=== PATIENT | male | born 1960 | race Asian ===

== ENCOUNTER → 2017-04-02 | Outpatient (CLI) | payer OTHER ==
[~2017-04-02] VITALS: Ht 180.3 cm; Wt 84.3 kg
[~2017-04-02] MED LIST: ACET-66 PO; ASA3 PO; ASCO500 PO; ASPI-1093 PO; BUPR75 PO; CALC500T62 PO; CEPH500 PO; D-ME118S13 PO; DOXY100C40 PO; MULT-71 PO; RISP0.5T19 PO; TESTC200I IM; TRIA15CR48 TP; TRIA15OI6 TP
[2017-04-02 14:04] VITALS: BP 115/70
== END | disposition home or self-care (01) ==
LOC: HBOWC 13:39
PROVIDERS: ATTEND Emergency Medicine
DX: I87.2 Venous insufficiency (chronic) (peripheral) (principal); L97.311 Non-pressure chronic ulcer of right ankle limited to breakdown of skin; L97.511 Non-pressure chronic ulcer of other part of right foot limited to breakdown of skin; I83.12 Varicose veins of left lower extremity with inflammation; M86.8X8 Other osteomyelitis, other site; Z86.718 Personal history of other venous thrombosis and embolism; Z79.82 Long term (current) use of aspirin; Z86.14 Personal history of Methicillin resistant Staphylococcus aureus infection; Z79.4 Long term (current) use of insulin
CPT/HCPCS: 97597

== ENCOUNTER → 2017-04-11 | Outpatient (CLI) | payer OTHER ==
[~2017-04-11] MED LIST changes: -ASPI-1093 PO; -D-ME118S13 PO; -TRIA15CR48 TP
[2017-04-11 08:22] VITALS: BP 112/61
== END | disposition home or self-care (01) ==
LOC: HBOWC 08:03
PROVIDERS: ATTEND Emergency Medicine
DX: I87.2 Venous insufficiency (chronic) (peripheral) (principal); L97.321 Non-pressure chronic ulcer of left ankle limited to breakdown of skin; D68.62 Lupus anticoagulant syndrome; M79.3 Panniculitis, unspecified; Q98.4 Klinefelter syndrome, unspecified; M21.6X2 Other acquired deformities of left foot; M21.6X1 Other acquired deformities of right foot; D66 Hereditary factor VIII deficiency; M86.8X8 Other osteomyelitis, other site; Z79.82 Long term (current) use of aspirin; Z79.4 Long term (current) use of insulin; Z86.14 Personal history of Methicillin resistant Staphylococcus aureus infection; Z86.718 Personal history of other venous thrombosis and embolism
CPT/HCPCS: 97597

== ENCOUNTER → 2017-04-18 | Outpatient (CLI) | payer OTHER ==
[~2017-04-18] MED LIST changes: +ACETIC ACID 0.25% 1000 ML IRRIGATION SOLUTION IRRIG ONE; +LIDOCAINE HCL 2% 5 ML JELLY TP ONE; +LIDOCAINE HCL 4% 50 ML SOLUTION TP ONE; +TRIAMCINOLONE 0.1% 15 GM CREAM TP ONE; +TRIAMCINOLONE 0.1% 15 GM OINTMENT TP ONE
[2017-04-18 08:15] VITALS: BP 109/54
== END | disposition home or self-care (01) ==
LOC: HBOWC 07:52
PROVIDERS: ATTEND Emergency Medicine
DX: I87.2 Venous insufficiency (chronic) (peripheral) (principal); L97.322 Non-pressure chronic ulcer of left ankle with fat layer exposed; L97.311 Non-pressure chronic ulcer of right ankle limited to breakdown of skin; M86.8X8 Other osteomyelitis, other site; Z86.14 Personal history of Methicillin resistant Staphylococcus aureus infection; Z79.4 Long term (current) use of insulin; Z86.718 Personal history of other venous thrombosis and embolism
CPT/HCPCS: 97597

== ENCOUNTER → 2017-04-25 | Outpatient (CLI) | payer OTHER ==
[~2017-04-25] MED LIST changes: -ACETIC ACID 0.25% 1000 ML IRRIGATION SOLUTION IRRIG ONE; -CEPH500 PO; -LIDOCAINE HCL 2% 5 ML JELLY TP ONE; -LIDOCAINE HCL 4% 50 ML SOLUTION TP ONE; -TRIAMCINOLONE 0.1% 15 GM CREAM TP ONE; -TRIAMCINOLONE 0.1% 15 GM OINTMENT TP ONE
[2017-04-25 08:24] VITALS: BP 109/72
== END | disposition home or self-care (01) ==
LOC: HBOWC 07:49
PROVIDERS: ATTEND Emergency Medicine
DX: I87.2 Venous insufficiency (chronic) (peripheral) (principal); L97.322 Non-pressure chronic ulcer of left ankle with fat layer exposed; L97.311 Non-pressure chronic ulcer of right ankle limited to breakdown of skin; M86.8X8 Other osteomyelitis, other site; Q89.9 Congenital malformation, unspecified; Z79.4 Long term (current) use of insulin; Z86.14 Personal history of Methicillin resistant Staphylococcus aureus infection; Z86.718 Personal history of other venous thrombosis and embolism
CPT/HCPCS: 97597

== ENCOUNTER → 2017-05-02 | Outpatient (CLI) | payer OTHER ==
[~2017-05-02] MED LIST changes: +TRIAMCINOLONE 0.1% 15 GM CREAM TP ONE
[2017-05-02 08:24] VITALS: BP 105/57
== END | disposition home or self-care (01) ==
LOC: HBOWC 07:47
PROVIDERS: ATTEND Emergency Medicine
DX: I87.2 Venous insufficiency (chronic) (peripheral) (principal); L97.321 Non-pressure chronic ulcer of left ankle limited to breakdown of skin; M86.8X8 Other osteomyelitis, other site; Z86.14 Personal history of Methicillin resistant Staphylococcus aureus infection; Z86.718 Personal history of other venous thrombosis and embolism; M21.6X2 Other acquired deformities of left foot; M21.6X1 Other acquired deformities of right foot; Z79.4 Long term (current) use of insulin
CPT/HCPCS: 97597; C5271; Q4102

== ENCOUNTER → 2017-05-09 | Outpatient (CLI) | payer OTHER ==
[~2017-05-09] MED LIST changes: -TRIAMCINOLONE 0.1% 15 GM CREAM TP ONE
[2017-05-09 09:30] VITALS: BP 104/50
== END | disposition home or self-care (01) ==
LOC: HBOWC 07:59
PROVIDERS: ATTEND Emergency Medicine
DX: I87.2 Venous insufficiency (chronic) (peripheral) (principal); L97.322 Non-pressure chronic ulcer of left ankle with fat layer exposed; L97.311 Non-pressure chronic ulcer of right ankle limited to breakdown of skin; Z79.4 Long term (current) use of insulin; Z86.14 Personal history of Methicillin resistant Staphylococcus aureus infection; Z86.718 Personal history of other venous thrombosis and embolism
CPT/HCPCS: 97597

== ENCOUNTER → 2017-05-16 | Outpatient (CLI) | payer OTHER ==
[~2017-05-16] MED LIST changes: -DOXY100C40 PO; +LIDOCAINE HCL 2% 5 ML JELLY TP ONE; +TRIAMCINOLONE 0.1% 15 GM OINTMENT TP ONE
[2017-05-16 08:43] VITALS: BP 112/72
== END | disposition home or self-care (01) ==
LOC: HBOWC 08:07
PROVIDERS: ATTEND Emergency Medicine Undersea and Hyperbaric Medicine
DX: I87.2 Venous insufficiency (chronic) (peripheral) (principal); L97.322 Non-pressure chronic ulcer of left ankle with fat layer exposed; M86.8X8 Other osteomyelitis, other site; Q98.4 Klinefelter syndrome, unspecified; Z86.14 Personal history of Methicillin resistant Staphylococcus aureus infection; Z86.718 Personal history of other venous thrombosis and embolism; M20.092 Other deformity of left finger(s); M20.091 Other deformity of right finger(s); M20.42 Other hammer toe(s) (acquired), left foot; M20.41 Other hammer toe(s) (acquired), right foot; Z79.4 Long term (current) use of insulin
CPT/HCPCS: 97597

== ENCOUNTER → 2017-05-19 | Outpatient (CLI) | payer OTHER ==
[~2017-05-19] MED LIST changes: -LIDOCAINE HCL 2% 5 ML JELLY TP ONE; -TRIAMCINOLONE 0.1% 15 GM OINTMENT TP ONE
[2017-05-19 08:00] VITALS: BP_SYST 130; BP_SYST 146; BP_DIAS 62; BP_DIAS 66
== END | disposition home or self-care (01) ==
LOC: HBOWC 08:01
PROVIDERS: ATTEND Emergency Medicine
DX: I87.2 Venous insufficiency (chronic) (peripheral) (principal); L97.322 Non-pressure chronic ulcer of left ankle with fat layer exposed; M20.092 Other deformity of left finger(s); M20.091 Other deformity of right finger(s); M20.42 Other hammer toe(s) (acquired), left foot; M20.41 Other hammer toe(s) (acquired), right foot; M86.8X8 Other osteomyelitis, other site; Z79.4 Long term (current) use of insulin; Z86.14 Personal history of Methicillin resistant Staphylococcus aureus infection; Z86.718 Personal history of other venous thrombosis and embolism
CPT/HCPCS: 97597

== ENCOUNTER → 2017-05-26 | Outpatient (CLI) | payer OTHER ==
[2017-05-26 08:00] VITALS: BP 95/64
== END | disposition home or self-care (01) ==
LOC: HBOWC 08:15
PROVIDERS: ATTEND Emergency Medicine
DX: I87.2 Venous insufficiency (chronic) (peripheral) (principal); L97.322 Non-pressure chronic ulcer of left ankle with fat layer exposed; M20.092 Other deformity of left finger(s); M20.091 Other deformity of right finger(s); M86.8X8 Other osteomyelitis, other site; M21.6X1 Other acquired deformities of right foot; M21.6X2 Other acquired deformities of left foot; Z79.4 Long term (current) use of insulin; Z86.14 Personal history of Methicillin resistant Staphylococcus aureus infection; Z86.718 Personal history of other venous thrombosis and embolism
CPT/HCPCS: 97597

== ENCOUNTER → 2017-06-02 | Outpatient (CLI) | payer OTHER ==
[~2017-06-02] MED LIST changes: +LIDOCAINE HCL 2% 5 ML JELLY TP ONE; +TRIAMCINOLONE 0.1% 15 GM OINTMENT TP ONE
[2017-06-02 08:22] VITALS: BP 97/57
[2017-06-02 10:33] VITALS: BP 113/60
== END | disposition home or self-care (01) ==
LOC: HBOWC 08:08
PROVIDERS: ATTEND Emergency Medicine
DX: I87.2 Venous insufficiency (chronic) (peripheral) (principal); L97.321 Non-pressure chronic ulcer of left ankle limited to breakdown of skin; M21.6X2 Other acquired deformities of left foot; M21.6X1 Other acquired deformities of right foot; M20.092 Other deformity of left finger(s); M20.091 Other deformity of right finger(s); M86.8X8 Other osteomyelitis, other site; Z86.14 Personal history of Methicillin resistant Staphylococcus aureus infection; Z86.718 Personal history of other venous thrombosis and embolism; M20.41 Other hammer toe(s) (acquired), right foot; D66 Hereditary factor VIII deficiency; M20.42 Other hammer toe(s) (acquired), left foot; Z79.82 Long term (current) use of aspirin
CPT/HCPCS: 97597

== ENCOUNTER → 2017-06-09 | Outpatient (CLI) | payer OTHER ==
[~2017-06-09] MED LIST changes: +DOXY100C PO; -LIDOCAINE HCL 2% 5 ML JELLY TP ONE; -TRIAMCINOLONE 0.1% 15 GM OINTMENT TP ONE
[2017-06-09 08:29] VITALS: BP 90/45
[2017-06-09 09:25] VITALS: BP 100/53
== END | disposition home or self-care (01) ==
LOC: HBOWC 08:09
PROVIDERS: ATTEND Emergency Medicine Undersea and Hyperbaric Medicine
DX: I87.2 Venous insufficiency (chronic) (peripheral) (principal); L97.321 Non-pressure chronic ulcer of left ankle limited to breakdown of skin; L97.311 Non-pressure chronic ulcer of right ankle limited to breakdown of skin; Z79.82 Long term (current) use of aspirin; M21.6X2 Other acquired deformities of left foot; M21.6X1 Other acquired deformities of right foot; M20.092 Other deformity of left finger(s); M20.091 Other deformity of right finger(s); M20.42 Other hammer toe(s) (acquired), left foot; M20.41 Other hammer toe(s) (acquired), right foot; Q98.4 Klinefelter syndrome, unspecified; M86.8X8 Other osteomyelitis, other site; Z86.14 Personal history of Methicillin resistant Staphylococcus aureus infection; Z86.718 Personal history of other venous thrombosis and embolism
CPT/HCPCS: 97597

== ENCOUNTER → 2017-06-17 | Outpatient (CLI) | payer OTHER ==
[2017-06-17 08:44] VITALS: BP 111/56
== END | disposition home or self-care (01) ==
LOC: HBOWC 08:07
PROVIDERS: ATTEND Emergency Medicine
DX: I87.2 Venous insufficiency (chronic) (peripheral) (principal); L97.322 Non-pressure chronic ulcer of left ankle with fat layer exposed; M86.8X8 Other osteomyelitis, other site; Z86.14 Personal history of Methicillin resistant Staphylococcus aureus infection; Z86.718 Personal history of other venous thrombosis and embolism; Z79.4 Long term (current) use of insulin
CPT/HCPCS: 97597; C5271; Q4124

== ENCOUNTER → 2017-06-24 | Outpatient (CLI) | payer OTHER ==
[~2017-06-24] MED LIST changes: -DOXY100C PO; -MULT-71 PO; +MULT1TAB70 PO; -TRIA15OI6 TP; +TRIAMCINOLONE 0.1% 15 GM OINTMENT TP ONE
[2017-06-24 08:42] VITALS: BP 108/61
== END | disposition home or self-care (01) ==
LOC: HBOWC 08:20
PROVIDERS: ATTEND Emergency Medicine
DX: I87.2 Venous insufficiency (chronic) (peripheral) (principal); L97.322 Non-pressure chronic ulcer of left ankle with fat layer exposed; M86.8X8 Other osteomyelitis, other site; M21.6X2 Other acquired deformities of left foot; M21.6X1 Other acquired deformities of right foot; M20.092 Other deformity of left finger(s); M20.091 Other deformity of right finger(s); Z79.4 Long term (current) use of insulin; Z86.14 Personal history of Methicillin resistant Staphylococcus aureus infection; Z86.718 Personal history of other venous thrombosis and embolism
CPT/HCPCS: C5271; Q4124

== ENCOUNTER → 2017-07-01 | Outpatient (CLI) | payer OTHER ==
[~2017-07-01] MED LIST changes: -TRIAMCINOLONE 0.1% 15 GM OINTMENT TP ONE
[2017-07-01 08:35] VITALS: BP 90/51
== END | disposition home or self-care (01) ==
LOC: HBOWC 08:24
PROVIDERS: ATTEND Emergency Medicine
DX: I87.2 Venous insufficiency (chronic) (peripheral) (principal); L97.321 Non-pressure chronic ulcer of left ankle limited to breakdown of skin; M21.6X2 Other acquired deformities of left foot; M21.6X1 Other acquired deformities of right foot; M86.8X8 Other osteomyelitis, other site; Z86.14 Personal history of Methicillin resistant Staphylococcus aureus infection; Z86.718 Personal history of other venous thrombosis and embolism; Q98.4 Klinefelter syndrome, unspecified; Z79.82 Long term (current) use of aspirin; M20.42 Other hammer toe(s) (acquired), left foot; M20.41 Other hammer toe(s) (acquired), right foot

== ENCOUNTER → 2017-07-08 | Outpatient (CLI) | payer OTHER ==
[~2017-07-08] MED LIST changes: +ALEN70TA48 PO; +LIDOCAINE HCL 2% 5 ML JELLY TP ONE
[2017-07-08 08:36] VITALS: BP 103/49
== END | disposition home or self-care (01) ==
LOC: HBOWC 08:13
PROVIDERS: ATTEND Emergency Medicine
DX: I87.2 Venous insufficiency (chronic) (peripheral) (principal); L97.321 Non-pressure chronic ulcer of left ankle limited to breakdown of skin; M86.8X8 Other osteomyelitis, other site; Q98.4 Klinefelter syndrome, unspecified; D68.62 Lupus anticoagulant syndrome; Z86.14 Personal history of Methicillin resistant Staphylococcus aureus infection; Z86.718 Personal history of other venous thrombosis and embolism; Z79.82 Long term (current) use of aspirin
CPT/HCPCS: 97597; C5271; Q4124

== ENCOUNTER → 2017-07-15 | Outpatient (CLI) | payer OTHER ==
[~2017-07-15] MED LIST changes: -LIDOCAINE HCL 2% 5 ML JELLY TP ONE; +TRIAMCINOLONE 0.1% 15 GM OINTMENT TP ONE
[2017-07-15 08:33] VITALS: BP 100/62
== END | disposition home or self-care (01) ==
LOC: HBOWC 08:18
PROVIDERS: ATTEND Emergency Medicine
DX: I87.2 Venous insufficiency (chronic) (peripheral) (principal); L97.321 Non-pressure chronic ulcer of left ankle limited to breakdown of skin; Q98.4 Klinefelter syndrome, unspecified; D68.62 Lupus anticoagulant syndrome; M86.68 Other chronic osteomyelitis, other site; M20.092 Other deformity of left finger(s); M20.091 Other deformity of right finger(s); Z79.82 Long term (current) use of aspirin; Z79.4 Long term (current) use of insulin; Z86.14 Personal history of Methicillin resistant Staphylococcus aureus infection; Z86.718 Personal history of other venous thrombosis and embolism; M20.42 Other hammer toe(s) (acquired), left foot; M20.41 Other hammer toe(s) (acquired), right foot

== ENCOUNTER → 2017-07-22 | Outpatient (CLI) | payer OTHER ==
[~2017-07-22] MED LIST changes: -TRIAMCINOLONE 0.1% 15 GM OINTMENT TP ONE
[2017-07-22 09:15] VITALS: BP 106/59
== END | disposition home or self-care (01) ==
LOC: HBOWC 08:09
PROVIDERS: ATTEND Emergency Medicine
DX: I87.2 Venous insufficiency (chronic) (peripheral) (principal); L97.321 Non-pressure chronic ulcer of left ankle limited to breakdown of skin; Q98.4 Klinefelter syndrome, unspecified; M86.68 Other chronic osteomyelitis, other site; Z86.14 Personal history of Methicillin resistant Staphylococcus aureus infection; Z86.718 Personal history of other venous thrombosis and embolism; Z79.82 Long term (current) use of aspirin; M20.42 Other hammer toe(s) (acquired), left foot; M20.41 Other hammer toe(s) (acquired), right foot

== ENCOUNTER → 2017-07-30 | Outpatient (CLI) | payer OTHER ==
[~2017-07-30] MED LIST changes: +LIDOCAINE HCL 2% 5 ML JELLY TP ONE; +TRIAMCINOLONE 0.1% 15 GM OINTMENT TP ONE
[2017-07-30 08:45] VITALS: BP 97/50
== END | disposition home or self-care (01) ==
LOC: HBOWC 08:10
PROVIDERS: ATTEND Emergency Medicine Undersea and Hyperbaric Medicine
DX: I87.2 Venous insufficiency (chronic) (peripheral) (principal); L97.321 Non-pressure chronic ulcer of left ankle limited to breakdown of skin; M86.68 Other chronic osteomyelitis, other site; M21.6X2 Other acquired deformities of left foot; M21.6X1 Other acquired deformities of right foot; Z86.14 Personal history of Methicillin resistant Staphylococcus aureus infection; Z86.718 Personal history of other venous thrombosis and embolism; Z79.4 Long term (current) use of insulin
CPT/HCPCS: 15271; Q4102

== ENCOUNTER → 2017-08-06 | Outpatient (CLI) | payer OTHER ==
[~2017-08-06] MED LIST changes: -ASA3 PO; +ASPI-989 PO
[2017-08-06 09:34] VITALS: BP 110/55
== END | disposition home or self-care (01) ==
LOC: HBOWC 08:59
PROVIDERS: ATTEND Internal Medicine
DX: I87.2 Venous insufficiency (chronic) (peripheral) (principal); L97.321 Non-pressure chronic ulcer of left ankle limited to breakdown of skin; L97.521 Non-pressure chronic ulcer of other part of left foot limited to breakdown of skin; Q98.4 Klinefelter syndrome, unspecified; M21.6X2 Other acquired deformities of left foot; M21.6X1 Other acquired deformities of right foot; M86.68 Other chronic osteomyelitis, other site; M20.42 Other hammer toe(s) (acquired), left foot; M20.41 Other hammer toe(s) (acquired), right foot; M20.092 Other deformity of left finger(s); Z79.4 Long term (current) use of insulin; Z86.14 Personal history of Methicillin resistant Staphylococcus aureus infection; Z86.718 Personal history of other venous thrombosis and embolism; M20.091 Other deformity of right finger(s)
CPT/HCPCS: 97597

== ENCOUNTER → 2017-08-13 | Outpatient (CLI) | payer OTHER ==
[~2017-08-13] MED LIST changes: -TRIAMCINOLONE 0.1% 15 GM OINTMENT TP ONE
[2017-08-13 08:21] VITALS: BP 109/64
== END | disposition home or self-care (01) ==
LOC: HBOWC 08:11
PROVIDERS: ATTEND Internal Medicine
DX: I87.2 Venous insufficiency (chronic) (peripheral) (principal); L97.321 Non-pressure chronic ulcer of left ankle limited to breakdown of skin; M86.8X7 Other osteomyelitis, ankle and foot; Z86.14 Personal history of Methicillin resistant Staphylococcus aureus infection; Z86.718 Personal history of other venous thrombosis and embolism
CPT/HCPCS: 11042

== ENCOUNTER → 2017-08-20 | Outpatient (CLI) | payer OTHER ==
[~2017-08-20] MED LIST changes: +CIP250 PO; +DOXY100C PO
[2017-08-20 08:54] VITALS: BP 107/63
== END | disposition home or self-care (01) ==
LOC: HBOWC 08:13
PROVIDERS: ATTEND Internal Medicine
DX: I87.2 Venous insufficiency (chronic) (peripheral) (principal); L97.321 Non-pressure chronic ulcer of left ankle limited to breakdown of skin; L89.893 Pressure ulcer of other site, stage 3; M86.8X7 Other osteomyelitis, ankle and foot; M86.68 Other chronic osteomyelitis, other site; Z86.14 Personal history of Methicillin resistant Staphylococcus aureus infection; Z86.718 Personal history of other venous thrombosis and embolism; Z79.4 Long term (current) use of insulin; Z79.82 Long term (current) use of aspirin; Q98.4 Klinefelter syndrome, unspecified
CPT/HCPCS: 11042

== ENCOUNTER → 2017-08-27 | Outpatient (CLI) | payer OTHER ==
[~2017-08-27] MED LIST changes: -CIP250 PO; +GENTAMICIN 0.1% TP; +GENTAMICIN SULFATE 0.1% 15 GM OINTMENT TP ONE; +LIDOCAINE HCL 2% 5 ML JELLY ONE; -LIDOCAINE HCL 2% 5 ML JELLY TP ONE
[2017-08-27 09:33] VITALS: BP 103/59
== END | disposition home or self-care (01) ==
LOC: HBOWC 09:03
PROVIDERS: ATTEND Internal Medicine
DX: I87.2 Venous insufficiency (chronic) (peripheral) (principal); L97.321 Non-pressure chronic ulcer of left ankle limited to breakdown of skin; L89.894 Pressure ulcer of other site, stage 4; N18.9 Chronic kidney disease, unspecified; M86.672 Other chronic osteomyelitis, left ankle and foot; M21.6X2 Other acquired deformities of left foot; M20.42 Other hammer toe(s) (acquired), left foot; M20.41 Other hammer toe(s) (acquired), right foot; Z79.4 Long term (current) use of insulin; Z79.82 Long term (current) use of aspirin; Z86.718 Personal history of other venous thrombosis and embolism
CPT/HCPCS: 11042

== ENCOUNTER → 2017-09-03 | Outpatient (CLI) | payer OTHER ==
[~2017-09-03] MED LIST changes: -GENTAMICIN SULFATE 0.1% 15 GM OINTMENT TP ONE; -LIDOCAINE HCL 2% 5 ML JELLY ONE
[2017-09-03 08:26] VITALS: BP 107/63
== END | disposition home or self-care (01) ==
LOC: HBOWC 08:14
PROVIDERS: ATTEND Internal Medicine
DX: I87.2 Venous insufficiency (chronic) (peripheral) (principal); L97.321 Non-pressure chronic ulcer of left ankle limited to breakdown of skin; L97.521 Non-pressure chronic ulcer of other part of left foot limited to breakdown of skin; L89.894 Pressure ulcer of other site, stage 4; Q98.4 Klinefelter syndrome, unspecified; N18.9 Chronic kidney disease, unspecified; M21.6X2 Other acquired deformities of left foot; M86.672 Other chronic osteomyelitis, left ankle and foot; M20.42 Other hammer toe(s) (acquired), left foot; M20.41 Other hammer toe(s) (acquired), right foot; Z79.4 Long term (current) use of insulin; Z79.82 Long term (current) use of aspirin; Z86.718 Personal history of other venous thrombosis and embolism
CPT/HCPCS: 11042

== ENCOUNTER → 2017-09-17 | Outpatient (CLI) | payer OTHER ==
[2017-09-17 09:25] VITALS: BP 109/56
== END | disposition home or self-care (01) ==
LOC: HBOWC 09:04
PROVIDERS: ATTEND Internal Medicine
DX: I87.2 Venous insufficiency (chronic) (peripheral) (principal); L97.321 Non-pressure chronic ulcer of left ankle limited to breakdown of skin; N18.9 Chronic kidney disease, unspecified; M86.8X8 Other osteomyelitis, other site; M20.092 Other deformity of left finger(s); M20.091 Other deformity of right finger(s); Z79.4 Long term (current) use of insulin; Z86.718 Personal history of other venous thrombosis and embolism; Z86.14 Personal history of Methicillin resistant Staphylococcus aureus infection
CPT/HCPCS: 11042

== ENCOUNTER → 2017-09-24 | Outpatient (CLI) | payer OTHER ==
[~2017-09-24] MED LIST changes: +LIDOCAINE HCL 2% 5 ML JELLY TP ONE
[2017-09-24 09:17] VITALS: BP 110/71
== END | disposition home or self-care (01) ==
LOC: HBOWC 08:51
PROVIDERS: ATTEND Internal Medicine
DX: I87.2 Venous insufficiency (chronic) (peripheral) (principal); L97.321 Non-pressure chronic ulcer of left ankle limited to breakdown of skin; L89.894 Pressure ulcer of other site, stage 4; M86.672 Other chronic osteomyelitis, left ankle and foot; N18.9 Chronic kidney disease, unspecified; Z86.718 Personal history of other venous thrombosis and embolism; Z79.4 Long term (current) use of insulin
CPT/HCPCS: 11042

== ENCOUNTER → 2017-10-08 | Outpatient (CLI) | payer OTHER ==
[~2017-10-08] MED LIST changes: +GENTAMICIN SULFATE 0.1% 15 GM OINTMENT TP ONE
[2017-10-08 09:16] VITALS: BP 116/61
[2017-10-08 09:17] VITALS: BP 129/69
== END | disposition home or self-care (01) ==
LOC: HBOWC 08:46
PROVIDERS: ATTEND Internal Medicine
DX: I87.2 Venous insufficiency (chronic) (peripheral) (principal); L97.321 Non-pressure chronic ulcer of left ankle limited to breakdown of skin; L89.894 Pressure ulcer of other site, stage 4; M86.672 Other chronic osteomyelitis, left ankle and foot; N18.9 Chronic kidney disease, unspecified; Z79.4 Long term (current) use of insulin; Z79.82 Long term (current) use of aspirin; Z86.718 Personal history of other venous thrombosis and embolism
CPT/HCPCS: 11042

== ENCOUNTER → 2017-10-15 | Outpatient (CLI) | payer OTHER ==
[~2017-10-15] MED LIST changes: -GENTAMICIN SULFATE 0.1% 15 GM OINTMENT TP ONE
[2017-10-15 10:37] VITALS: BP 109/60
== END | disposition home or self-care (01) ==
LOC: HBOWC 08:58
PROVIDERS: ATTEND Internal Medicine
DX: I87.2 Venous insufficiency (chronic) (peripheral) (principal); L97.321 Non-pressure chronic ulcer of left ankle limited to breakdown of skin; L89.894 Pressure ulcer of other site, stage 4; N18.9 Chronic kidney disease, unspecified; M86.672 Other chronic osteomyelitis, left ankle and foot; Z86.718 Personal history of other venous thrombosis and embolism; Z79.4 Long term (current) use of insulin
CPT/HCPCS: 11042

== ENCOUNTER → 2017-10-22 | Outpatient (CLI) | payer OTHER ==
[~2017-10-22] MED LIST changes: -LIDOCAINE HCL 2% 5 ML JELLY TP ONE
[2017-10-22 09:07] VITALS: BP 110/58
== END | disposition home or self-care (01) ==
LOC: HBOWC 08:56
PROVIDERS: ATTEND Internal Medicine
DX: I87.2 Venous insufficiency (chronic) (peripheral) (principal); L97.321 Non-pressure chronic ulcer of left ankle limited to breakdown of skin; L89.894 Pressure ulcer of other site, stage 4; M86.672 Other chronic osteomyelitis, left ankle and foot; Z86.718 Personal history of other venous thrombosis and embolism; Z86.14 Personal history of Methicillin resistant Staphylococcus aureus infection; Z79.4 Long term (current) use of insulin
CPT/HCPCS: 11042

== ENCOUNTER → 2017-10-29 | Outpatient (CLI) | payer OTHER ==
[~2017-10-29] MED LIST changes: +GENTAMICIN SULFATE 0.1% 15 GM OINTMENT TP ONE; +LIDOCAINE HCL 2% 5 ML JELLY TP ONE
[2017-10-29 09:25] VITALS: BP 116/61
== END | disposition home or self-care (01) ==
LOC: HBOWC 09:06
PROVIDERS: ATTEND Internal Medicine
DX: I87.2 Venous insufficiency (chronic) (peripheral) (principal); L97.321 Non-pressure chronic ulcer of left ankle limited to breakdown of skin; M86.8X7 Other osteomyelitis, ankle and foot; N18.9 Chronic kidney disease, unspecified; Z86.718 Personal history of other venous thrombosis and embolism

== ENCOUNTER → 2017-11-12 | Outpatient (CLI) | payer OTHER ==
[~2017-11-12] MED LIST changes: -GENTAMICIN SULFATE 0.1% 15 GM OINTMENT TP ONE; +LIDOCAINE HCL 4% 50 ML SOLUTION TP ONE
[2017-11-12 09:43] VITALS: BP 122/62
== END | disposition home or self-care (01) ==
LOC: HBOWC 09:00
PROVIDERS: ATTEND Internal Medicine
DX: S91.002D Unspecified open wound, left ankle, subsequent encounter (principal); S91.109D Unspecified open wound of unspecified toe(s) without damage to nail, subsequent encounter; N18.9 Chronic kidney disease, unspecified; E11.69 Type 2 diabetes mellitus with other specified complication; M86.8X7 Other osteomyelitis, ankle and foot; Z86.718 Personal history of other venous thrombosis and embolism; X58.XXXD Exposure to other specified factors, subsequent encounter
CPT/HCPCS: 11042

== ENCOUNTER → 2017-11-26 | Outpatient (CLI) | payer OTHER ==
[~2017-11-26] MED LIST changes: -DOXY100C PO; -LIDOCAINE HCL 4% 50 ML SOLUTION TP ONE
[2017-11-26 10:37] VITALS: BP 104/62
== END | disposition home or self-care (01) ==
LOC: HBOWC 09:19
PROVIDERS: ATTEND Internal Medicine
DX: I87.2 Venous insufficiency (chronic) (peripheral) (principal); E11.622 Type 2 diabetes mellitus with other skin ulcer; L97.321 Non-pressure chronic ulcer of left ankle limited to breakdown of skin; L97.521 Non-pressure chronic ulcer of other part of left foot limited to breakdown of skin; L89.894 Pressure ulcer of other site, stage 4; E11.22 Type 2 diabetes mellitus with diabetic chronic kidney disease; N18.9 Chronic kidney disease, unspecified; E11.69 Type 2 diabetes mellitus with other specified complication; M86.8X7 Other osteomyelitis, ankle and foot; Z86.718 Personal history of other venous thrombosis and embolism; Z79.4 Long term (current) use of insulin
CPT/HCPCS: 11042; 97597

== ENCOUNTER → 2017-12-17 | Outpatient (CLI) | payer OTHER ==
[~2017-12-17] MED LIST changes: -LIDOCAINE HCL 2% 5 ML JELLY TP ONE
[2017-12-17 09:55] VITALS: BP 134/68
== END | disposition home or self-care (01) ==
LOC: HBOWC 09:10
PROVIDERS: ATTEND Internal Medicine
DX: I87.2 Venous insufficiency (chronic) (peripheral) (principal); E11.622 Type 2 diabetes mellitus with other skin ulcer; L97.321 Non-pressure chronic ulcer of left ankle limited to breakdown of skin; E11.621 Type 2 diabetes mellitus with foot ulcer; L97.521 Non-pressure chronic ulcer of other part of left foot limited to breakdown of skin; L89.894 Pressure ulcer of other site, stage 4; E11.69 Type 2 diabetes mellitus with other specified complication; M86.8X7 Other osteomyelitis, ankle and foot; E11.22 Type 2 diabetes mellitus with diabetic chronic kidney disease; N18.9 Chronic kidney disease, unspecified; Z86.718 Personal history of other venous thrombosis and embolism; Z79.4 Long term (current) use of insulin
CPT/HCPCS: 11042

== ENCOUNTER → 2017-12-31 | Outpatient (CLI) | payer OTHER ==
[~2017-12-31] MED LIST changes: +GENTAMICIN SULFATE 0.1% 15 GM OINTMENT TP ONE; +LIDOCAINE HCL 2% 5 ML JELLY TP ONE
[2017-12-31 11:10] VITALS: BP 114/70
== END | disposition home or self-care (01) ==
LOC: HBOWC 08:56
PROVIDERS: ATTEND Internal Medicine
DX: I87.2 Venous insufficiency (chronic) (peripheral) (principal); E11.622 Type 2 diabetes mellitus with other skin ulcer; L97.321 Non-pressure chronic ulcer of left ankle limited to breakdown of skin; E11.621 Type 2 diabetes mellitus with foot ulcer; L89.894 Pressure ulcer of other site, stage 4; L97.521 Non-pressure chronic ulcer of other part of left foot limited to breakdown of skin; E11.69 Type 2 diabetes mellitus with other specified complication; M86.8X7 Other osteomyelitis, ankle and foot; E11.22 Type 2 diabetes mellitus with diabetic chronic kidney disease; N18.9 Chronic kidney disease, unspecified; Z86.718 Personal history of other venous thrombosis and embolism; Z79.4 Long term (current) use of insulin
CPT/HCPCS: 11042

== ENCOUNTER → 2018-01-07 | Outpatient (CLI) | payer OTHER ==
[~2018-01-07] MED LIST changes: -GENTAMICIN SULFATE 0.1% 15 GM OINTMENT TP ONE
[2018-01-07 09:47] VITALS: BP 128/70
== END | disposition home or self-care (01) ==
LOC: HBOWC 09:02
PROVIDERS: ATTEND Internal Medicine
DX: I87.2 Venous insufficiency (chronic) (peripheral) (principal); E11.622 Type 2 diabetes mellitus with other skin ulcer; L97.321 Non-pressure chronic ulcer of left ankle limited to breakdown of skin; E11.621 Type 2 diabetes mellitus with foot ulcer; L97.521 Non-pressure chronic ulcer of other part of left foot limited to breakdown of skin; L89.894 Pressure ulcer of other site, stage 4; M86.8X7 Other osteomyelitis, ankle and foot; E11.22 Type 2 diabetes mellitus with diabetic chronic kidney disease; N18.9 Chronic kidney disease, unspecified; Z86.718 Personal history of other venous thrombosis and embolism; Z79.4 Long term (current) use of insulin
CPT/HCPCS: 11042

== ENCOUNTER → 2018-01-14 | Outpatient (CLI) | payer OTHER ==
[~2018-01-14] MED LIST changes: -LIDOCAINE HCL 2% 5 ML JELLY TP ONE
[2018-01-14 09:00] VITALS: BP 121/67
== END | disposition home or self-care (01) ==
LOC: HBOWC 09:10
PROVIDERS: ATTEND Internal Medicine
DX: I87.2 Venous insufficiency (chronic) (peripheral) (principal); E11.622 Type 2 diabetes mellitus with other skin ulcer; L97.321 Non-pressure chronic ulcer of left ankle limited to breakdown of skin; S91.302D Unspecified open wound, left foot, subsequent encounter; E11.22 Type 2 diabetes mellitus with diabetic chronic kidney disease; N18.9 Chronic kidney disease, unspecified; Z79.4 Long term (current) use of insulin; Z86.718 Personal history of other venous thrombosis and embolism; X58.XXXD Exposure to other specified factors, subsequent encounter

== ENCOUNTER 2024-11-10 12:03 | Emergency (ER) | payer MEDICAID ==
[~2024-11-10] VITALS: Ht 177.8 cm; Wt 88.6 kg
[~2024-11-10 12:03] MED LIST changes: +ACET-3385 PO; -ACET-66 PO; -ALEN70TA48 PO; +ALEN70TA65 PO; -ASPI-989 PO; +ATOR40TA28 PO; +BIMA2.5D4 IO; -BUPR75 PO; -CALC500T62 PO; -GENTAMICIN 0.1% TP; +ICOS1CAP PO; +INSNOV SQ; +LEVO-72 PO; +MULT-660 PO; -MULT1TAB70 PO; +PRUC2TAB PO; -RISP0.5T19 PO; +RISP0.5T80 PO; +RIVA20TA PO; -TESTC200I IM; +testosterone TP
[2024-11-10 12:14] VITALS: TEMP 98.7
[2024-11-10] MEDS ORDERED: DULA0.75 SQ (12:18)
[2024-11-10 13:57] LABS: APPEARANCE,URINE CLEAR (CLEAR); BILIRUBIN,URINE NEGATIVE (NEGATIVE); COLOR,URINE LIGHT YELLOW (YELLOW); GLUCOSE, URINE (UA) NEGATIVE (NEGATIVE); KETONES,URINE NEGATIVE (NEGATIVE); LEUKOCYTE ESTERASE ,URINE SMALL (NEGATIVE); NITRATE,URINE NEGATIVE (NEGATIVE); OCCULT BLOOD,URINE MODERATE (NEGATIVE); PROTEIN,URINE NEGATIVE (NEGATIVE); SPECIFIC GRAVITIY, URINE 1.012 (1.003-1.030); UROBILINOGEN,URINE <=1.0 mg/dL (<=1.0)
[2024-11-10 14:09] LABS: BASOPHILS % (AUTO) 0.2 % (0.0-2.0); EOSINOPHILS % (AUTO) 0.1 % (1.0-6.0); HEMATOCRIT 37.9 % (41-53); HEMOGLOBIN 12.5 g/dL (13.5-17.5); LYMPHOCYTES # (AUTO) 1.4 K/uL (1.0-4.8); LYMPHOCYTES % (AUTO) 25.9 % (22.0-44.0); MEAN CORPUSCULAR HEMOGLOBIN 31.3 pg (26.0-34.0); MEAN CORPUSCULAR VOLUME 95 fL (80-100); MONOCYTES # (AUTO) 0.6 K/uL (0.1-1.0); MONOCYTES % (AUTO) 10.6 % (2.0-9.0); NEUTROPHILS # (AUTO) 3.5 K/uL (1.8-7.7); NEUTROPHILS % (AUTO) 63.2 % (40.0-70.0); PLATELET COUNT (AUTO) 165 K/uL (150-450); RED BLOOD CELL COUNT(AUTO) 3.99 MIL/uL (4.50-5.90); RED CELL DISTRIBUTION WIDTH 14.1 % (11.5-14.5); WHITE BLOOD COUNT (AUTO) 5.6 K/uL (4.5-11.0)
[2024-11-10 14:10] LABS: BACTERIA,URINE Few /HPF (None Seen)
[2024-11-10 14:18] LABS: CALCIUM, TOTAL 9.5 mg/dL (8.8-10.5); CREATININE 1.33 mg/dL (0.60-1.30); POTASSIUM 4.7 mmol/L (3.5-5.1)
[2024-11-10 14:22] VITALS: BP 153/90; PULSE 80; RESP 20; O2SAT 99
== END 2024-11-10 17:41 | disposition home or self-care (01) ==
LOC: EMS 12:03
DX: R31.9 Hematuria, unspecified (principal); K59.00 Constipation, unspecified; R10.30 Lower abdominal pain, unspecified; E11.9 Type 2 diabetes mellitus without complications; Z88.1 Allergy status to other antibiotic agents; Z88.2 Allergy status to sulfonamides; Z79.01 Long term (current) use of anticoagulants; Z79.4 Long term (current) use of insulin
CPT/HCPCS: 74176; 80048; 81001; 83690; 85025; 87086; 99284

== ENCOUNTER 2024-12-31 03:15 | Emergency (ER) | payer MEDICAID ==
[~2024-12-31] VITALS: Ht 177.8 cm; Wt 88.3 kg
[~2024-12-31 03:15] MED LIST changes: +DULA0.75 SQ; -PRUC2TAB PO
[2024-12-31] MEDS ORDERED: 0.9% SODIUM CHLORIDE 10 ML SYRINGE IVP PRN (03:30)
[2024-12-31] MEDS: ACETAMINOPHEN 1000 MG/ISO-OSM 100 ML IV ONE (03:39)
[2024-12-31] MEDS: SODIUM CHLORIDE 0.9% 2,400 ML IV ONE (03:39)
[2024-12-31 04:23] LABS: BASOPHILS % (AUTO) 0.2 % (0.0-2.0); EOSINOPHILS % (AUTO) 0.2 % (1.0-6.0); HEMATOCRIT 34.2 % (41-53); HEMOGLOBIN 11.2 g/dL (13.5-17.5); LYMPHOCYTES # (AUTO) 1.7 K/uL (1.0-4.8); LYMPHOCYTES % (AUTO) 18.2 % (22.0-44.0); MEAN CORPUSCULAR HGB CONC 32.8 G/dL (31.0-37.0); MEAN CORPUSCULAR VOLUME 94 fL (80-100); MONOCYTES % (AUTO) 11.5 % (2.0-9.0); NEUTROPHILS # (AUTO) 6.4 K/uL (1.8-7.7); NEUTROPHILS % (AUTO) 69.9 % (40.0-70.0); PLATELET COUNT (AUTO) 191 K/uL (150-450); RED BLOOD CELL COUNT(AUTO) 3.62 MIL/uL (4.50-5.90); RED CELL DISTRIBUTION WIDTH 13.8 % (11.5-14.5); WHITE BLOOD COUNT (AUTO) 9.1 K/uL (4.5-11.0)
[2024-12-31 04:29] LABS: ANION GAP 9 mmol/L (8-16); CARBON DIOXIDE 25 mmol/L (22-29); CHLORIDE 107 mmol/L (98-107); CREATININE 1.64 mg/dL (0.60-1.30); GLOMERULAR FILTR. RATE CALC 43 mL/min (>60); GLUCOSE,RANDOM 130 mg/dL (70-110); POTASSIUM 3.8 mmol/L (3.5-5.1); SODIUM SERUM 141 mmol/L (136-145); UREA NITROGEN, BLOOD 18 mg/dL (7-18)
[2024-12-31 04:37] LABS: B-TYPE NATRIURETIC PEPTIDE 73 pg/mL (0-100)
[2024-12-31 04:38] LABS: LACTIC ACID 0.9 mmol/L (0.4-2.0); TROPONIN I-HIGH SENSITIVITY 12 ng/L (<76)
[2024-12-31 05:09] LABS: COVID AG,FIA SOURCE NASAL SWAB
[2024-12-31 05:49] LABS: INFLUENZA TYPE A NEGATIVE FOR TYPE A (NEGATIVE); INFLUENZA TYPE B NEGATIVE FOR TYPE B (NEGATIVE); SARS-COV2 (COVID) ANTIGEN,FIA Negative (Negative)
[2024-12-31 08:08] VITALS: BP 113/71; PULSE 91; RESP 20; TEMP 98.5; O2SAT 97
== END 2024-12-31 08:08 | disposition home or self-care (01) ==
LOC: EMS 03:17
DX: J06.9 Acute upper respiratory infection, unspecified (principal); B97.89 Other viral agents as the cause of diseases classified elsewhere; E11.9 Type 2 diabetes mellitus without complications; I10 Essential (primary) hypertension; Z79.01 Long term (current) use of anticoagulants; Z79.4 Long term (current) use of insulin; Z79.890 Hormone replacement therapy; Z88.1 Allergy status to other antibiotic agents; Z88.2 Allergy status to sulfonamides; Z20.822 Contact with and (suspected) exposure to COVID-19
CPT/HCPCS: 99285; 96365; 71045; 87426; 80048; 83605; 83880; 84484; 85025; 87040; 87804; 36415; 93005; 84145; J7030; J0131; 96361